=== PATIENT | male | born 1955 | race African-American/Black ===

== ENCOUNTER 2018-11-10 20:09 | Inpatient (IN) | payer MEDICAID ==
--- NOTE | ~2018-11-10 | HEMODYNAMI ---
PATIENT:ALEXANDRE CARRANZA JR MEDICAL RECORD: [id number] : 57 LOCATION:[address] [id number] ADMISSION DATE: 11/11/18 Generatedon:11/14/201810:45 Patient name: ALEXANDRE CARRANZA Patient #: [id number] SSN: : 1955 Date of study: 11/14/2018 Page: Of Hemodynamic Procedure Report Patient Data Patient Demographics Procedure consent was obtained First Name: ALEXANDRE Gender: Male Last Name: TERE Suffix: Patient #: [id number] : 1955 Age: 63 year(s) Accession #: Race: Black [id number] Additional ID: [id number] Contact details [address]: [address] [place] [address] [address] State: [place] City: [facility] Zip code: [address] Past Medical History Allergies: No known allergies Admission Admission Data Admission Date: 11/11/2018 Admission Time: 16:33 Room #: D.2122 Lab Results Lab Result Date: 11/14/2018 Lab Result Time: 0:00 Biochemistry Name Units Result Min Max BUN mg/dl 12 --(-*--)-- 7 18 Creatinine mg/dl 0.9 --(-*--)-- 0.6 1.3 CBC Name Units Result Min Max Hematocrit % 41.2 -*(----)-- 42 54 Hemoglobin g/dl 14.7 --(-*--)-- 13.5 17.5 Procedure Procedure Types Cath Procedure Diagnostic Procedure LHC LHC w/Coronaries Procedure Description Procedure Date Procedure Date: 11/14/2018 Procedure Start Time: 10:35 Procedure End Time: 10:42 Procedure Staff Name Function Saran Bran MD Performing Physician Du Gentile RT Monitor Theresa Merino RT Scrub Gavin Maguire RN Nurse Filemon Lea RN Plywood Matcher Procedure Data Cath Procedure Fluoroscopy Diagnostic fluoroscopy Total fluoroscopy Time: 0.7 time: 0.7 min min Diagnostic fluoroscopy Total fluoroscopy dose: 273 dose: 273 mGy mGy Contrast Material Contrast Material Type Amount (ml) Isovue 300 34 Entry Location Entry Primary Successful Side Size Upsize Upsize Entry Closure Succes sful Closure Location (Fr) 1 (Fr) 2 (Fr) Remarks Device Remarks Femoral Right 5 Fr Exoseal artery Estimated blood loss: 5 ml Diagnostic catheters Device Type Used For End Catheter Placement MULTIPACK Pigtail 5 Fr Procedure catheter MULTIPACK JL 4.0 5Fr Procedure catheter MULTIPACK 3DRC 5Fr Procedure catheter Procedure Complications No complications Procedure Medications Medication Administration Route Dosage Oxygen etCO2 Nasal cannula 2 l/min Lidocaine 2% added to field 20 Heparin Flush Bag added to field 2 bags (1000units/500ml NS) 0.9% NaCl I.V. 50 ml/hr Versed I.V. 1 mg Fentanyl I.V. 50 mcg Versed I.V. 1 mg Fentanyl I.V. 50 mcg Fentanyl I.V. 50 mcg Hemodynamics Rest HGB: 14.7 (g/dl) Heart Rate: 93 (bpm) Pressure Samples Time Site Value (mmHg) Purpose Heart Use Rate(bpm) 10:36 LV 107/12,12 Snapshot 87 10:36 LV 106/12,16 EDP 74 10:37 AO 120/78(91) Pullback 79 10:37 LV 106/12,16 Pullback 79 Gradients Valve Time Site 1 Site 2 Mean SEP/DFP Peak To Heart Use (mmHg) (sec/min) Peak Rate (mmHg) (bpm) Aortic 10:37 LV AO 0 8 0 79 106/12,16 120/78(91) Calculations Valve P-P Mean Valve Index Valve Source Name Gradient Area Flow (cm2) Aortic 0 0 0 0 Snapshots Pre Cath Intra NCS Post Cath Vital Signs Time Heart Resp SPO2 etCO2 NIBP (mmHg) Rhythm Pain Sedation Rate (ipm) (%) (mmHg) Status Level (bpm) 10:22:08 98 12 100 8.9 125/85(102) A-Fib 0 (11) 10(A) , No pain 10:26:14 96 22 94 33.7 108/81(92) A-Fib 0 (11) 10(A) , No pain 10:30:18 86 13 97 35.2 115/85(93) A-Fib 0 (11) 10(A) , No pain 10:34:22 86 14 98 25.4 117/90(100) A-Fib 0 (11) 10(A) , No pain 10:38:36 80 16 99 38.9 116/72(84) A-Fib 0 (11) 9(A) , No pain 10:42:46 87 12 98 40.4 106/76(93) NSR 0 (11) 10(A) , No pain Medications Time Medication Route Dose Verified Delivered Reason Notes Eff ectiveness by by 10:20:07 Oxygen etCO2 2 Saran Debbieie used for Nasal l/min Shant Maguire RN procedure cannula 10:20:18 Lidocaine 2% added 20ml Saran Saran for local to vial Shant Bran MD anesthetic field 10:20:24 Heparin Flush added 2 Saran Saran used for Bag to bags Shant Bran MD procedure (1000units/500ml field NS) 10:20:34 0.9% NaCl I.V. 50 Saran Buffie Per ml/hr Shant Maguire RN physician 10:34:49 Versed I.V. 1 mg Saran Alonso for Shant Maguire RN sedation 10:34:59 Fentanyl I.V. 50 Saran Buffie for oziel Maguire RN sedation 10:38:48 Versed I.V. 1 mg Saran Lewisie for Shant Maguire RN sedation 10:38:51 Fentanyl I.V. 50 Saran Lewisie for mcg Shant Maguire RN sedation 10:40:55 Fentanyl I.V. 50 Saran Buffie for oziel Maguire RN sedation Procedure Log Time Note 9:57:48 Signed procedure consent form obtained from patient. 9:57:49 Diagnostic Cath status Urgent 9:57:51 Filemon Lea RN sent for patient. Start room use. 10:09:14 Patient received from Med II to CCL 1 Alert and oriented. Tansferred to table in Supine position. 10:09:15 Warm blankets applied, and joe hugger turned on for patient comfort. 10:09:15 Correct patient and procedure confirmed by team. 10:09:16 ECG and BP/O2 sat monitors applied to patient. 10:09:34 H&P Date Dictated: 11/11/2018 Within 30 days and on chart.. 10:18:31 Lab Result : BUN 12 mg/dl 10:18:31 Lab Result : Hemoglobin 14.7 g/dl 10:18:31 Lab Result : Creatinine 0.9 mg/dl 10:18:31 Lab Result : Hematocrit 41.2 % 10:18:54 Snore? No 10:18:56 Sleep apnea? No 10:18:59 Deviated septum? No 10:19:01 Opens mouth fully? Yes 10:19:02 Sticks out tongue? Yes 10:19:06 Airway obstruction? No ? 10:19:12 Dentures? No ? 10:19:18 Previous problem with sedation/anesthesia? No ? 10:20:07 Oxygen 2 l/min etCO2 Nasal cannula was administered by Gavin Maguire RN; used for procedure; 10:20:18 Lidocaine 2% 20ml vial added to field was administered by Saran Bran MD; for local anesthetic; 10:20:19 Pre procedure: right dorsailis pedis pulse Doppler 10:20:22 Patient pain scale 0/10 ?. 10:20:24 Heparin Flush Bag (1000units/500ml NS) 2 bags added to field was administered by Saran Bran MD; used for procedure; 10:20:28 IV patent on arrival in right hand with 0.9% NaCl at [facility]. 10:20:30 Lab results completed and on chart. 10:20:32 Right groin area was prepped with chlora-prep and draped in sterile fashion 10:20:33 Alarms reviewed by R. N. 10:20:33 Sharps counted by scrub and verified by R.N. 10:20:34 0.9% NaCl 50 ml/hr I.V. was administered by Gavin Maguire RN; Per physician; 10:20:37 Use device set Femoral Dx 10:20:37 ACIST Syringe (32983) opened to sterile field. 10:20:38 Bag Decanter () opened to sterile field. 10:20:38 Medline Cath Pack ([id number]) opened to sterile field. 10:20:40 ACIST Hand Control (60948) opened to sterile field. 10:20:40 ACIST Manifold (38988) opened to sterile field. 10:20:41 DIAGNOSTIC Multipack 5Fr catheter set ([id number]) opened to sterile field. 10:20:41 Tegaderm 4 x 4 (1626W) opened to sterile field. 10:20:42 SHEATH 5FR [place] (FWP990) opened to sterile field. 10:20:43 DIAGNOSTIC WIRE .035 260cm J wire (206613) opened to sterile field. 10:20:48 Time tracking: Regular hours (M-F 7:00 - 5:00) 10:20:51 Plan of Care:Hemodynamics will remain stable., Cardiac rhythm will remain stable., Comfort level will be maintained., Respiratory function will remain adequate., Patient/ family verbilizes understanding of procedure., Procedure tolerated without complication., Recovers from procedure without complications.. 10:21:10 Vital chart was started 10::11 Baseline sample Acquired. 10::16 Rhythm: atrial fibrillation 10::18 Full Disclosure recording started 10:: Pre-procedure instructions explained to patient. 10:: Pre-op teaching completed and patient verbalized understanding. 10::23 Family in waiting room. 10::25 Patient NPO since Breakfast. 10::33 Patient allergic to No known allergies 10:21:34 Is the patient allergic to Iodine/contrast media? No. 10::35 Is patient on blood thinner?Yes 10:21:37 ACC The patient was administered the following blood thiners within the last 24 hours: ACCPlavix 10:22:14 Patient diabetic? No. 10::43 Physician paged 10:31:15 Zero performed for pressure channel P1 10:33:19 Physician arrived 10:33:19 --------ALL STOP TIME OUT------ 10:33:19 Final Timeout: patient, procedure, and site verified with staff and physician. All members of the team are in agreement. 10:33:21 Right groin site verified by team. 10:33:24 Maximum allowable Isovue 300 dose 300ml. Physician notified. (300ml for normal creatinines. For patients with creatinine of 1.7 or higher multiply weight(kg) x 5 divided by creatinine.) 10:33:27 Fire Safety Assessment: A--An alcohol-based skin anteseptic being used preoperatively., C--Open oxygen or nitrous oxide is being used., D--An ESU, laser, or fiber-optic light is being used. 10:33:30 Physical assessment completed. ASA score P 2 - A patient with mild systemic disease as per Saran Bran MD. 10:33:39 Sedation plan: IV Moderate Sedation Medication:Versed, Fentanyl 10:34:49 Versed 1 mg I.V. was administered by Gavin Maguire RN; for sedation; 10:34:59 Fentanyl 50 mcg I.V. was administered by Gavin Maguire RN; for sedation; 10:35:32 Procedure started. 10:35:41 Local anesthetic to right femoral artery with Lidocaine 2% by Saran Bran MD.INITIAL ACCESS ONLY 10:36:19 A 5 Fr sheath was inserted into the Right Femoral artery 10:36:41 A MULTIPACK Pigtail 5 Fr catheter was advanced over the wire and used for Procedure. 10:37:05 LV gram done using GLEASON 10:37:07 Injector settings: Ml/sec: 10, Volume: 20, 10:37:10 LV hemodynamics recorded. 10:37:14 EF : 10 % 10:37:23 A MULTIPACK JL 4.0 5Fr catheter was advanced over the wire and used for Procedure. 10:37:27 LCA angiography performed. 10:38:31 Catheter exchanged over wire. 10:38:34 A MULTIPACK 3DRC 5Fr catheter was advanced over the wire and used for Procedure. 10:38:48 Versed 1 mg I.V. was administered by Gavin Maguire RN; for sedation; 10:38:51 Fentanyl 50 mcg I.V. was administered by Gavin Maguire RN; for sedation; 10:39:11 RCA angiography performed. 10:39:45 Catheter removed. 10:39:46 EXOSEAL 5Fr (EX500) opened to sterile field. 10:39:55 Sheath removed intact; hemostasis achieved with Exoseal to the Right Femoral artery. 10:39:57 Procedure ended.(Physican Out) 10:40:55 Fentanyl 50 mcg I.V. was administered by Gavin Maguire RN; for sedation; 10::34 Fluoroscopy time 00.70 minutes. 10:41:38 Flurop Dose total: 273 10::38 Fluoroscopy dose: 273 mGy 10:41:41 Contrast amount:Isovue 300 34ml. 10:41:43 Sharps counted by scrub and verified by R.N. 10:41:44 Insertion/operative site no bleeding no hematoma. 10:41:46 Post-op/insertion site Right Femoral artery dressed using a 4 x 4 and Tegaderm. 10:41:49 Post right femoral artery:stable, soft, clean and dry 10:41:50 Post Procedure Pulses reassessed and unchanged 10:41:53 Post-procedure physical assessment completed. ASA score P 2 - A patient with mild systemic disease as per Saran Bran MD. 10:41:57 Post procedure rhythm: unchanged. 10:42:00 Estimated blood loss: 5 ml 10:42:01 Post procedure instruction explained to patient.Patient verbalizes understanding. 10:42:02 Patient needs reinforcement of post procedure teaching. 10:42:18 Procedure and supply charges have been captured, reviewed, submitted and are correct. 10:42:23 Procedure Complication : No complications 10:42:24 Vital chart was stopped 10:42:25 See physician's report for complete and final results. 10:42:26 Report given to PCU. 10:42:28 Patient transfered to PCU with Stretcher. 10:42:30 Procedure ended. 10:42:30 Full Disclosure recording stopped 10:42:33 End room use (Document Last) Device Usage Item Name Manufacture Quantity Catalog Hospital Part Current Minimal L ot# / Number Charge Number Stock Stock Serial# Code ACIST Acist 1 [id number] 529686 437003 550059 20 Syringe Medical (20120) Systems Inc Bag Microtek 1 2001S 947396 22216 199761 5 Decanter Medical Inc. () Medline Medline 1 [id number] 748613 97088 541953 5 Cath Pack ([id number]) ACIST Hand Acist 1 49783 140039 665475 085764 5 Control Medical (79962) Systems Inc ACIST Acist 1 10511 406771 008075 363486 5 Manifold Medical (81150) Systems Inc DIAGNOSTIC Cardinal 1 [id number] 204565 43284 985985 30 Multipack Health 5Fr catheter set (UO1548) Tegaderm 4 3M 1 1626W 552347 729941 985952 5 x 4 (1626W) SHEATH 5FR Terumo 1 QFS773 654476 421592 099340 5 [place] (IOF041) DIAGNOSTIC St Stone 1 604767 355123 449443 395224 30 WIRE .035 260cm J wire (890495) MULTIPACK Cardinal 1 793419 5 Pigtail 5 Health Fr catheter MULTIPACK Cardinal 1 889720 5 JL 4.0 5Fr Health catheter MULTIPACK Cardinal 1 479486 5 3DRC 5Fr Health catheter EXOSEAL 5Fr Cardinal 1 EX500 009496 409235 395539 10 (EX500) Health Signature Audit [place] Stage Time Signature Unsigned Intra-Procedure 11/14/2018 Du Gentile 10:45:22 AM RT(R) Signatures Monitor : Du Gentile RT Signature : Date : Time : [id number] [place] [address]
[~2018-11-10 20:09] MED LIST: BACTRIM DS TABL1 TAB PO; HYDROCHLOROTHIA25 MG PO; HYDROCODONE-APA1 TAB PO; LIPITOR20 MG PO; TRAZODONE HCL50 MG PO
[2018-11-10 20:31] LABS: BASOPHILS 0.4 % (0-2); EOSINOPHILS 0 % (0-7); HEMATOCRIT 41.2 % (42.0-54.0); HEMOGLOBIN 14.7 g/dL (13.5-17.5); IMMATURE GRANULOCYTES 0.2 % (0-5); LYMPHOCYTES 20.9 % (15-50); MCH 28.7 pg (26.0-34.0); MCHC 35.7 g/dL (31.0-37.0); MCV 80.3 fL (80.0-100.0); MEAN PLATELET VOLUME 9.5 fL (7.4-10.4); MONOCYTES 13.9 % (2-11); NEUTROPHILS 64.6 % (40-80); PLATELET COUNT 229 10x3/uL (130-400); RBC 5.13 10x6/uL (4.20-6.10); RDW 16.3 % (11.5-14.5); WBC 5.4 10x3/uL (4.8-10.8)
[2018-11-10 20:43] LABS: ALBUMIN 2.8 g/dL (3.4-5.0); ALKALINE PHOSPHATASE 162 U/L (46-116); ALT (SGPT) 55 U/L (10-68); CALC OSMOLALITY 265 mosm/kg (275-300); CALCIUM 8.8 mg/dL (8.5-10.1); CARBON DIOXIDE 25.2 mmol/L (21.0-32.0); CHLORIDE - SERUM 96 mmol/L (98-107); CREATININE - SERUM 0.9 mg/dL (0.6-1.3); GLUCOSE 91 mg/dL (74-106); POTASSIUM - SERUM 3.3 mmol/L (3.5-5.1); PROTEIN - SERUM 7.9 g/dL (6.4-8.2); SODIUM 133 mmol/L (136-145); UREA NITROGEN 12 mg/dL (7-18); eGFR NON AFRICAN AMERICAN > 90 mL/min (90-120)
[2018-11-10 20:59] LABS: APTT 26.3 SECONDS (22.8-39.4); CKMB 1.5 U/L (0.0-3.6); CREATINE KINASE 329 UL (21-232); INR 1.17 (0.85-1.17); MAGNESIUM - SERUM 1.5 mg/dL (1.8-2.4); PRO BNP 16297 pg/mL (0-125); PROTIME 14.4 SECONDS (11.6-15.0)
[2018-11-10 21:03] LABS: TROPONIN-I 0.133 ng/mL (0.000-0.060)
--- NOTE | 2018-11-10 22:03 | NUR ---
RECIEVED TO ROOM 2121 FROM ER VIA STRETCHER. PT A&O. PT C/O SOB, PLACED ON O2 AT 2 LITERS VIA NC. 02 SATS 96%. IV TO LEFT ARM WITH CARDIZEM INFUSING AT 5 CC/HR, IV SITE CLEAN AND DRY. PLACED ON TELEMETRY, 106 UNCONTROLLED AFIB. MED REC AND HISTORY OBTAINED. PT CURRENTLY DENIES PAIN OR NEEDS, BED LOW, CL IN REACH.
[2018-11-10] MEDS ORDERED: LIPITOR80 MG PO (22:48)
[2018-11-10] MEDS ORDERED: LISINOPRIL5 MG PO (22:48)
[2018-11-10] MEDS ORDERED: TRAZODONE HCL150 MG PO (22:48)
[2018-11-10] MEDS ORDERED: TOPROL XL50 MG PO (22:49)
--- NOTE | 2018-11-10 23:31 | NUR ---
NOTIFED BY MT THAT PT HAS JUST HAD A RUN OF V TACH, PT IN BED RESTING, ASYMPTOMATIC, NO S/S DISTRESS NOTED.
[2018-11-11 02:38] LABS: BASOPHILS 0.6 % (0-2); EOSINOPHILS 0.2 % (0-7); HEMATOCRIT 41.4 % (42.0-54.0); HEMOGLOBIN 14.6 g/dL (13.5-17.5); LYMPHOCYTES 23.1 % (15-50); MCH 28.7 pg (26.0-34.0); MCHC 35.3 g/dL (31.0-37.0); MCV 81.5 fL (80.0-100.0); MEAN PLATELET VOLUME 9.3 fL (7.4-10.4); MONOCYTES 13.9 % (2-11); NEUTROPHILS 62.2 % (40-80); PLATELET COUNT 213 10x3/uL (130-400); RBC 5.08 10x6/uL (4.20-6.10); RDW 16.6 % (11.5-14.5); WBC 5.1 10x3/uL (4.8-10.8)
[2018-11-11 03:08] LABS: CALC OSMOLALITY 269 mosm/kg (275-300); CALCIUM 8.5 mg/dL (8.5-10.1); CARBON DIOXIDE 27.1 mmol/L (21.0-32.0); CHLORIDE - SERUM 97 mmol/L (98-107); CREATININE - SERUM 0.9 mg/dL (0.6-1.3); GLUCOSE 101 mg/dL (74-106); POTASSIUM - SERUM 3.5 mmol/L (3.5-5.1); SODIUM 135 mmol/L (136-145); TROPONIN-I 0.144 ng/mL (0.000-0.060); UREA NITROGEN 12 mg/dL (7-18); eGFR NON AFRICAN AMERICAN > 90 mL/min (90-120)
--- NOTE | 2018-11-11 03:19 | NUR ---
RESTING WITH EYES CLOSED, RESPERATIONS EVEN, NO S/S DISTRESS NOTED.
--- NOTE | 2018-11-11 03:58 | NUR ---
UPON PT GETTING UP TO THE BR, IV TO LEFT ARM PULLED OUT. RESITED IV TO RIGHT HAND, CARDIZEM DRIP RESUMED.
[2018-11-11 04:00] VITALS: BP 137/91
[2018-11-11 04:06] VITALS: BP 155/106; BMI 28.7
[2018-11-11 09:30] VITALS: BP 134/49
[2018-11-11 11:00] VITALS: BP 118/86
[2018-11-11 12:34] VITALS: BMI 28.6
--- NOTE | 2018-11-11 14:53 | NUR ---
UP IN CHAIR. REFUSED SCDS AT THIS TIME.
[2018-11-11 16:00] VITALS: BP 119/87
--- NOTE | 2018-11-11 20:00 | NUR ---
INITIAL ROUNDS AND ASSESSMENT COMPLETED. PT ALERT/ORIENTED, RESTING BUT ROUSES UP TO NAME. 85/CAF PER TELEMETRY. SALINE LOCK TO RIGHT HAND. O2 @ 2L/NC WITH NONLABORED RESPIRATIONS. MONITOR AND CPOC.
--- NOTE | 2018-11-11 21:16 | NUR ---
BEDTIME MEDS GIVEN. CAF PER TELEMETRY.
--- NOTE | 2018-11-12 01:43 | NUR ---
RESTING IN BED WITH NO DISTRESS. CALL LIGHT IN REACH. MONITOR AND CPOC.
--- NOTE | 2018-11-12 03:24 | NUR ---
PT AWAKE WITH C/O SEVERE/CRAMPING ABDOMINAL PAIN. STATES THIS IS THE SAME PAIN HE HAD THAT BROUGHT HIM TO ER. HYPO BS X 4, STATES SMALL BM YESTERDAY AFTER BEING GIVEN SOMETHING "SUGARY AND VERY SWEET" TO TAKE. MEDICATED WITH ZOFRAN 4MG SIVP AND MORPHINE 4MG SIVP AT THIS TIME. MONITOR AND CPOC.
[2018-11-12 04:21] VITALS: BP 128/94
--- NOTE | 2018-11-12 07:30 | NUR ---
RECEIVED PT IN BED AAOX4 RESP UNLABORED DENIES ANY NEEDS OR DISCOMFORT AT THIS TIME
[2018-11-12 08:44] VITALS: BP 118/85
[2018-11-12 12:08] VITALS: BP 121/81
[2018-11-12 13:31] VITALS: BP 116/86
[2018-11-12 17:28] VITALS: BP 137/92
[2018-11-12 19:35] VITALS: BP 124/80
--- NOTE | 2018-11-12 20:00 | NUR ---
INITIAL ROUNDS AND ASSESSMENT COMPLETED. IV DOBUTAMINE INFUSING AT 15ML/HR TO RIGHT HAND. NONLABORED RESPIRATIONS ON ROOM AIR. ALERT/ORIENTED. VOICING NO NEEDS OR C/O PAIN. PT TEACHING ON THE IMPORTANCE OF MEASURING ALL OUTPUT TO BE ABLE TO DETERMINE THE EFFECTIVENESS OF HIS LASIX AND DOBUTAMINE. PT VOICED UNDERSTANDING.
[2018-11-13] VITALS (8 sets, daily range): BP systolic 117–135; BP diastolic 76–95
--- NOTE | 2018-11-13 02:10 | NUR ---
IV LASIX HAS BEEN ADMINISTERED.NEW BAG OF DOBUTAMINE UP AND INFUSING. PT ROUSES UP BRIEFLY, THEN BACK TO RESTING WITH EYES CLOSED. PT TEACHING HAS BEEN DONE ON IMPORTANCE OF STRICT OUTPUT MEASUREMENTS. SO FAR ONLY 100ML OF URINE HAS BEEN IN HIS URINAL. POSSIBLY PT IS GETTING UP TO USE THE BATHROOM. WILL REINFORCE NEED FOR URINE MEASUREMENT.
--- NOTE | 2018-11-13 03:12 | NUR ---
RESTING IN BED WITH EYES CLOSED. NO DISTRESS. NONLABORED RESPIRATIONS. MONITOR AND CPOC.
--- NOTE | 2018-11-13 04:18 | NUR ---
PT AWAKENED WITH C/O ABDOMINAL PAIN/CRAMPING. MEDICATED WITH MORPHINE 4MG SIVP AND ZOFRAN 4MG SIVP. MONITOR AND CPOC.
--- NOTE | 2018-11-13 07:30 | NUR ---
PT AAOX4 RESP UNLABORED DENIES ANY NEEDS OR DISCOMFORT AT THIS TIME
--- NOTE | 2018-11-13 21:02 | NUR ---
RECIEVED LAYING IN BED WITH EYES OPEN AND TV ON. ALERT AND ORIENTED X4. UP AD CHRISTINA TO B/R. IV TO RIGHT HAND WITH DOBUTAMINE @ 15ML/HR. DSG TO SITE CLEAN DRY AND INTACT. TELEMETRY IN PLACE. +3 PITTING EDEMA TO LINN. LOWER EXTREMITIES. EDUCATED ON NPO STATUS AFTER MN. VOICED UNDERSTANDING.
[2018-11-14 04:57] VITALS: BP 135/83
--- NOTE | 2018-11-14 07:29 | NUR ---
ROUNDING DONE WITH PATIENT SITTING IN CHAIR, NPO STATUS FOR HEART CATH TODAY. SUPPLIES GIVEN FOR SHOWER. ON HEART MONITOR SHOWING CAF. RIGHT HAND SALINE LOCK PIV AT THIS TIME.
--- NOTE | 2018-11-14 07:56 | NUR ---
SHOWER AND COMPLETE BED LINEN CHANGE DONE.
[2018-11-14 08:23] VITALS: BP 123/94
--- NOTE | 2018-11-14 10:05 | NUR ---
TO SENIOR DATA WAREHOUSE ARCHITECT VIA BED.
--- NOTE | 2018-11-14 11:00 | NUR ---
RETURNS FROM SKIRT CLIPPER RECOVERY. TO LAY FLAT X 2 HOURS. RIGHT GROIN DRESSING IS C/D/I.
[2018-11-14 11:57] VITALS: BP 117/76
--- NOTE | 2018-11-14 12:15 | NUR ---
FOUND PATIENT STANDING AT SIDE OF BED NEEDING TO "PEE". GOT HIM TO LAY BACK DOWN AND ASSISTED HIM WITH THE URINAL. RIGHT GROIN IS SOFT, NO HEMATOMA FELT. DRESSING IS C/D/I. I INFORMED HIM THAT HE NEEDS TO STAY FLAT ANOTHER 45 MIN AND I WOULD ASSIST HIM IN SITTING UP TO EAT. STATES TO UNDERSTANDING. CALL LIGHT IS ON CHEST.
--- NOTE | 2018-11-14 12:57 | NUR ---
SAT AT 30 DEGREES IN BED. PATIENT IS STILL SLEEPY, STATES THAT HE DOES NOT WANT TO EAT. LEFT TRAY IN ROOM. WILL MONITOR.
--- NOTE | 2018-11-14 14:35 | NUR ---
PATIENT TO WAKE UP AND EAT PART OF HIS SANDWICH AND ALL HIS CHIPS, DRANK HIS TEA. BACK TO SLEEP, RESP ARE EVEN. RIGHT GROIN DRESSING IS C/D/I
--- NOTE | 2018-11-14 14:46 | NUR ---
ASSSITED PATIENT TO RESTROOM TO VOID. PATIENT STRAINING. I ASKED THAT HE NOT DO THAT, REPLIES " I HAVE HAD TO STRAIN ALL MY LIFE TO PEE". I ASKED IF HE EVER HAD THIS CHECKED OUT AND HE SAID NO.
[2018-11-14 15:40] VITALS: BP 127/79
--- NOTE | 2018-11-14 17:35 | NUR ---
DENIES NEEDS AT THIS TIME. RIGHT GROIN DRESSING IS C/D/I.
--- NOTE | 2018-11-14 19:27 | NUR ---
RESUMING PATIENT CARE. PATIENT RESTING COMFORTABLY IN BED. RESPIRATIONS ARE EVEN AND UNLABORED. NO S/S OF DISTRESS. NO C/O PAIN. DENIES NEEDS. CALL LIGHT WITHIN REACH. WILL CPOC.
[2018-11-14 20:18] VITALS: BP 127/94
--- NOTE | 2018-11-14 23:19 | NUR ---
WAS TOLD BY SEWER PIPE LAYER HELPER THAT THE PATIENT HAD AN 8 BEAT RUN OF VTACH. WENT TO ASSESS PATIENT, PATIENT WAS UP USING THE RESTROOM. NO S/S OF DISTRESS. NO C/O CHEST PAIN.
[2018-11-15 00:32] VITALS: BP 124/92
[2018-11-15 04:09] VITALS: BP 97/64
--- NOTE | 2018-11-15 07:16 | NUR ---
ROUNDING DONE WITH NO COMPLAINTS AT PRESENT TIME. RIGHT GROIN DRESSING FROM [facility], C/D/I. ON HEART MONITOR SHOWING CAF, HR 88. RIGHT HAND PIV SEEN WITH DOBUTAMINE INFUSING AT 15 CC/HR. ON 2L PER NC. 3+ EDEMA SEEN TO BILATERAL FEET.
[2018-11-15 08:00] VITALS: BP 115/72
--- NOTE | 2018-11-15 09:00 | NUR ---
T 102. TYLENOL GIVEN ORDERED.
--- NOTE | 2018-11-15 09:39 | NUR ---
PATIENT IS HAVING DRY HEAVES, ZOFRAN GIVEN FOR COMFORT.
--- NOTE | 2018-11-15 11:46 | NUR ---
DR MIR IN TO SEE PATIENT.
[2018-11-15 12:00] VITALS: BP 129/79
--- NOTE | 2018-11-15 13:12 | NUR ---
Nutrition Follow up Pt is on a Cardiac diet with 72% average po intake past 3 days. Pt is not able to eat much today due to nausea Poncho ordered Pt reports he is able to tolerate soda pop Will continue to monitor Customized dinner tonight to improve toleration RD following
--- NOTE | 2018-11-15 14:57 | NUR ---
RESTING WITH EYES CLOSED, RESP EVEN.
[2018-11-15 16:30] VITALS: BP 128/94
--- NOTE | 2018-11-15 17:53 | NUR ---
PAGE INTO DR MIR PATIENT NOW HAS CRACKLES BILATERAL HEARD THROUGHOUT LUNG MARSHALL. NEW ORDERS RECEIVED.
--- NOTE | 2018-11-15 18:09 | NUR ---
22 G TO RIGHT FA NEAR AC X 1 STICK PER THIS NURSE. 16 FR CARLSON CATH PLACED WITH RETURN OF 1100 CC CONCENTRATED URINE.
--- NOTE | 2018-11-15 19:05 | NUR ---
BEDSIDE REPORT RECEIVED. PT LAYING IN BED WITH EYES CLOSE. PT OPENS EYES WHEN NURSES WALK INTO ROOM. PT DENIES ANY NEEDS. NO S/S OF DISTRESS. PT BEDLOW AND CALL LIGHT IN REACH. NAME AND DATE PLACED ON BOARD. DOBUTAMINE AND BUMEX INFUSING ORDERED. PT WILL CALL FOR ASSIST WHEN NEEDED. WILL CPOC
[2018-11-15 21:16] VITALS: BP 132/83
--- NOTE | 2018-11-15 21:34 | NUR ---
NIGHT MEDICATIONS GIVEN. PT VERBALIZED UNDERSTANDING OF MEDICATIONS. PT BUMEX AND DOBUTAMINE INFUSING ORDERED. PT BEDLOW AND CALL LIGHT IN REACH. 850 ML OF YELLOW URINE EMPTIED FROM URINAL. PT WILL CALL FOR ASSIST WHEN NEEDED. WILL CPOC
--- NOTE | 2018-11-15 23:39 | NUR ---
PT CALLED TO ATTEMPT TO USE RESTROOM. BM UNSUCCESSFUL. PT BACK INTO BED. WILL CALL FOR ASSIST WHEN NEEDED. WILL CPOC
[2018-11-16] VITALS (7 sets, daily range): BP systolic 101–142; BP diastolic 67–84
[2018-11-16 05:20] LABS: ANION GAP 8.1 mmol/L (8-16); CALCIUM 7.9 mg/dL (8.5-10.1); CARBON DIOXIDE 36.6 mmol/L (21.0-32.0); CREATININE - SERUM 1.2 mg/dL (0.6-1.3)
[2018-11-16 05:38] LABS: POTASSIUM - SERUM 2.7 mmol/L (3.5-5.1)
--- NOTE | 2018-11-16 06:13 | NUR ---
40 MEQ OF KDUR GIVEN CRUSHED IN PUDDING,. PT SITTING UP HOB ABOVE 30, NOURISHMENT PROVIDED. PT WILL CALL FOR ASSIST WHEN NEEDED. WILL DO A REDRAW IN 4 HOURS
--- NOTE | 2018-11-16 08:07 | NUR ---
ROUNDING DONE WITH PATIENT HAVING TO HAVE HIS CARLSON CATH EMTIED AGAIN. 1000 CC CLEAR YELLOW URINE. ON HEART MONITOR SHOWING UCAF, HR 107. ON ROOM AIR AT THIS TIME. RIGHT WRIST/HAND SEEN WITH PIV OF DOBUTAMINE INFUSING AT 15 CC/HR AND BUMEX INFUSING AT 10 CC/HR. SALINE LOCK PIV SEEN TO RIGHT AC. ORANGE SWAB CAPS ARE IN USE. RIGHT GROIN DRESSING SEEN WITH DRESSING C/D/I, THIS WILL BE REMOVED TODAY.
--- NOTE | 2018-11-16 11:22 | NUR ---
TEMP 100.1, TYLENOL GIVEN ORDERED. RE-DRAW OF POTASSIUM IS STILL 2.7. PAGE INTO DR MIR FOR FURTHER ORDERS. AWAITING CALL BACK.
--- NOTE | 2018-11-16 11:25 | NUR ---
NEW ORDERS FROM DR MIR.
--- NOTE | 2018-11-16 13:03 | NUR ---
PATIENT IS RESTING WITH EYES CLOSED. RESP ARE EVEN. APPEARS TO BE PAIN FREE AT THIS TIME. AROUSES EASILY WHEN I WALK TO BED.
--- NOTE | 2018-11-16 14:09 | NUR ---
WHEN ASKED ABOUT WASHING UP, PATIENT REFUSES TO TAKE A BATH OR LINEN CHANGE AT THIS TIME. PATIENT STATES THAT HE WANTS TO WAIT "UNTIL THE MORNING".
--- NOTE | 2018-11-16 16:48 | MORECARE ---
CASE MANAGEMENT DISCHARGE SUMMARY PATIENT: ALEXANDRE CARRANZA JR UNIT: [id number] ADM DATE: 11/11/18 AGE: 63 : 57 SEX: M ROOM/BED: D.2122 AUTHOR: ALBA ABDUL PHYSICIAN: REFERRING PHYSICIAN: PRIYA MIR MD DATE OF SERVICE: 11/16/18 Discharge Plan Patient Name: ALEXANDRE [facility]ARRANZA [facility] [facility] 1955 Planned Disposition: Home Anticipated Discharge Date: Discharge Date: Expected LOS: Initial Reviewer: [email or web address] Initial Review Date: 11/16/2018 Generated: 11/16/18 5:47 pm DCPIA - Discharge Planning Initial Assessment Updated by [email or web address]: Wes Kunz on 11/16/18 4:46 pm * Is the patient Alert and Oriented? Yes * How many steps to enter\exit or inside your home? * PCP DR. HAMMOND, [facility] * Pharmacy [facility]. * Preadmission Environment Home with Family * ADLs Partial Dependent * Partial ADLs (Assistance needed) Medication Management * Equipment None * Other Equipment NO MEDICAL EQUIPMENT PROVIDER PREFERENCE * List name and contact numbers for known caregivers / representatives who currently or will assist patient after discharge: CLAUDIO TO, GIRLFRIEND, * Verbal permission to speak to the caregivers and representatives has been obtained from the patient. Yes * Community resources currently utilized None * Please name any agencies selected above. NONE * Additional services required to return to the preadmission environment? No * Can the patient safely return to the preadmission environment? Yes * Has this patient been hospitalized within the prior 30 days at any hospital? No Patient Name: ALEXANDRE CARRANZA Page [id number] at 1648 All edits/amendments must be made on the electronic document DICTATION DATE: 11/16/181646 GUSSET FOLDER: KATE 11/16/181646 RPT#: [id number] DC DATE: STATUS: ADM IN [facility] [address] [place] [address] END OF REPORT
--- NOTE | 2018-11-16 16:58 | MORECARE ---
CASE MANAGEMENT DISCHARGE SUMMARY PATIENT: ALEXANDRE CARRANZA JR UNIT: [id number] ADM DATE: 11/11/18 AGE: 63 : 57 SEX: M ROOM/BED: D.2122 AUTHOR: CHANTELL,DOC PHYSICIAN: REFERRING PHYSICIAN: PRIYA MIR MD DATE OF SERVICE: 11/16/18 Discharge Plan Patient Name: ALEXANDRE CARRANZA [facility] [facility] 1955 Planned Disposition: Home Anticipated Discharge Date: Discharge Date: Expected LOS: Initial Reviewer: [email or web address] Initial Review Date: 11/16/2018 Generated: 11/16/18 5:58 pm Comments DCP- Discharge Planning Updated by [id number]: Wes Kunz on 11/16/18 3:[address] Patient Name: ALEXANDRE CARRANZA Admission Status: ER Accout number: [id number] Admission Date: 11-11-2018 : 1955 Admission Diagnosis:CHEST PAIN, UNSPECIFIED Attending: CARLA MIR Current LOS: 5 Anticipated DC Date: Planned Disposition: Home Primary Insurance: MEDICAID [place] Discharge Planning Comments: CM MET WITH PT IN ROOM TO DISCUSS DISCHARGE PLANNING AND NEEDS. PT REPORTS LIVING AT HOME INDEPENDENTLY WITH HIS GIRLFRIEND. PT REPORTS THAT HE CANNOT READ THAT GOOD SO HIS GIRLFRIEND ASSISTS WITH MEDICATION MANAGEMENT. PT HAS NO MEDICAL EQUIPMENT AND NO OUTSIDE SERVICES ASSISTING IN THE HOME. CM DISCUSSED AVAILABILITY OF HOME HEALTH, REHAB SERVICES AND MEDICAL EQUIPMENT. PT DENIES DISCHARGE NEEDS, REPORTS HE PLANS TO RIDE THE BUS HOME. PT DOES USE MEDICAID TRANSPORTATION AND WOULD LIKE CM TO ARRANGE IT IF POSSIBLE FOR DISCHARGE HOME. CM TO ASSIST WITH CALLING MEDICAID TRANSPORTATION SERVICES FOR PT'S DISCHARGE HOME. PT DENIES FURTHER NEEDS. CM TO FOLLOW AND ASSIST IF NEEDED. Dry End Operator: Wes Kunz DCPIA - Discharge Planning Initial Assessment Updated by [email or web address]: Wes Kunz on 11/16/18 4:46 pm * Is the patient Alert and Oriented? Yes * How many steps to enter\exit or inside your home? * PCP DR. HAMMOND, [facility] * Pharmacy [facility]. * Preadmission Environment Home with Family * ADLs Partial Dependent * Partial ADLs (Assistance needed) Medication Management * Equipment None * Other Equipment NO MEDICAL EQUIPMENT PROVIDER PREFERENCE * List name and contact numbers for known caregivers / representatives who currently or will assist patient after discharge: CLAUDIO TO, GIRLFRIEND, * Verbal permission to speak to the caregivers and representatives has been obtained from the patient. Yes * Community resources currently utilized None * Please name any agencies selected above. NONE * Additional services required to return to the preadmission environment? No * Can the patient safely return to the preadmission environment? Yes * Has this patient been hospitalized within the prior 30 days at any hospital? No Last DP export: 11/16/18 3:48 pm Patient Name: ALEXANDRE CARRANZA Page [id number] at 1658 All edits/amendments must be made on the electronic document DICTATION DATE: 11/16/181656 STEEL ERECTOR: KATE 11/16/181656 RPT#: [id number] DC DATE: STATUS: ADM IN [facility] [address] [place] [address] END OF REPORT
--- NOTE | 2018-11-16 17:31 | NUR ---
PATIENT DOES NOT WANT TO EAT SUPPER AT THIS TIME.
--- NOTE | 2018-11-16 19:15 | NUR ---
BEDSIDE REPORT RECEIVED. NAME AND DATE PLACED ON BOARD. PT IS AAO. HAS DOBUTAMINE AND BUMEX INFUSING ORDERED. ROBYN NOTED. PT HAS NOURISHMENT AT BEDSIDE. DENIES ANY NEEDS AT THIS TIME. NO S/S OF DISTRESS. PT BEDLOW AND CALL LIGHT IN REACH. NAME AND DATE PLACED ON BOARD. WILL CPOC
--- NOTE | 2018-11-16 21:28 | NUR ---
CHANGED TUBING ON DOBUTAMINE, NEW BAG AND TUBING INFUSING ORDERED TO RIGHT HAND. PT NIGHT MEDS GIVEN. PT VERBALIZED UNDERSTANDING OF MEDICATIONS. PT BEDLOW AND CALL LIGHT IN REACH. PT WILL CALL FOR ASSIST WHEN NEEDED.WILL CPOC
--- NOTE | 2018-11-17 01:26 | NUR ---
PT GIVEN A POTASSIUM RIDER FOR 2.8 POTASSIUM.
--- NOTE | 2018-11-17 02:22 | NUR ---
2ND RIDER INFUSING, EMPTIED 1634 FROM [facility]. PT DENIES ANY OTHER NEEDS. WILL CPOC
--- NOTE | 2018-11-17 04:16 | NUR ---
4TH RIDER STARTED INFUSING.
[2018-11-17 05:32] VITALS: BP 115/71
[2018-11-17 05:35] LABS: BASOPHILS 0.2 % (0-2); EOSINOPHILS 0.2 % (0-7); HEMATOCRIT 41.3 % (42.0-54.0); HEMOGLOBIN 14.4 g/dL (13.5-17.5); IMMATURE GRANULOCYTES 0.2 % (0-5); LYMPHOCYTES 14.3 % (15-50); MCH 28.2 pg (26.0-34.0); MCHC 34.9 g/dL (31.0-37.0); MCV 80.8 fL (80.0-100.0); MEAN PLATELET VOLUME 9.9 fL (7.4-10.4); MONOCYTES 14.7 % (2-11); NEUTROPHILS 70.4 % (40-80); RBC 5.11 10x6/uL (4.20-6.10); RDW 16.1 % (11.5-14.5); WBC 10.2 10x3/uL (4.8-10.8)
[2018-11-17 05:40] LABS: PLATELET COUNT 260 10x3/uL (130-400)
[2018-11-17 06:10] LABS: ANION GAP 7.1 mmol/L (8-16); CALCIUM 7.8 mg/dL (8.5-10.1); CARBON DIOXIDE 39.3 mmol/L (21.0-32.0); CREATININE - SERUM 1.2 mg/dL (0.6-1.3); MAGNESIUM - SERUM 1.1 mg/dL (1.8-2.4)
[2018-11-17 06:11] LABS: POTASSIUM - SERUM 3.4 mmol/L (3.5-5.1)
--- NOTE | 2018-11-17 07:30 | NUR ---
ASSESSMENT DONE. ALERT AND ORIENTED. TELEMERTY SHOWS CAF 84. RIGHT AC SL. RIGHT FA WITH BUMEX AT 10 AND DOBUTAMINE AT 15. CARLSON CATH PATENT TO GRAVITY BAG. UP AB CHRISTINA. WILL MONITOR
[2018-11-17 09:31] VITALS: BP 103/73
[2018-11-17] MEDS ORDERED: BETAPACE 120 M120 MG PO (10:05)
[2018-11-17] MEDS ORDERED: BUMEX2 MG PO (10:07)
[2018-11-17] MEDS ORDERED: K-TAB10 MEQ PO (10:08)
[2018-11-17] MEDS ORDERED: ELIQUIS5 MG PO (10:09)
--- NOTE | 2018-11-17 11:12 | NUR ---
PT DISCHARGED. IVS DCD. INSTRUCTIONS GIVEN TO PT. TO PRIVATE CAR PER WHEELCHAIR
--- NOTE | 2018-11-17 11:44 | NUR ---
I have reviewed this patient and I concur with the Shift Assessment completed by the Licensed Practical Nurse today this shift.
--- NOTE | 2018-11-17 12:00 | NUR ---
RIDE HERE. DISCHARGE INSTRUCTIONS GIVEN. BOTH PT AND FAMILY UNDERSTAND. TO CAR VIA WC.
--- NOTE | 2018-11-17 15:57 | MORECARE ---
CASE MANAGEMENT DISCHARGE SUMMARY PATIENT: ALEXANDRE CARRANZA JR UNIT: [id number] ADM DATE: 11/11/18 AGE: 63 : 57 SEX: M ROOM/BED: D.2122 AUTHOR: CHANTELL,DOC PHYSICIAN: REFERRING PHYSICIAN: PRIYA MIR MD DATE OF SERVICE: 11/17/18 Discharge Plan Patient Name: ALEXANDRE CARRANZA Facility: [facility]:[place] : 1955 Planned Disposition: Home Anticipated Discharge Date: 11/17/18 Discharge Date: 11/17/2018 Expected LOS: 6 Initial Reviewer: [email or web address] Initial Review Date: 11/16/2018 Generated: 11/17/18 4:56 pm Comments DCP- Discharge Planning Updated by [email or web address]: Wes Kunz on 11/16/18 3:[address] Patient Name: ALEXANDRE CARRANZA Admission Status: ER Accout number: [id number] Admission Date: 11-11-2018 : 1955 Admission Diagnosis:CHEST PAIN, UNSPECIFIED Attending: CARLA MIR Current LOS: 5 Anticipated DC Date: Planned Disposition: Home Primary Insurance: MEDICAID [place] Discharge Planning Comments: CM MET WITH PT IN ROOM TO DISCUSS DISCHARGE PLANNING AND NEEDS. PT REPORTS LIVING AT HOME INDEPENDENTLY WITH HIS GIRLFRIEND. PT REPORTS THAT HE CANNOT READ THAT GOOD SO HIS GIRLFRIEND ASSISTS WITH MEDICATION MANAGEMENT. PT HAS NO MEDICAL EQUIPMENT AND NO OUTSIDE SERVICES ASSISTING IN THE HOME. CM DISCUSSED AVAILABILITY OF HOME HEALTH, REHAB SERVICES AND MEDICAL EQUIPMENT. PT DENIES DISCHARGE NEEDS, REPORTS HE PLANS TO RIDE THE BUS HOME. PT DOES USE MEDICAID TRANSPORTATION AND WOULD LIKE CM TO ARRANGE IT IF POSSIBLE FOR DISCHARGE HOME. CM TO ASSIST WITH CALLING MEDICAID TRANSPORTATION SERVICES FOR PT'S DISCHARGE HOME. PT DENIES FURTHER NEEDS. CM TO FOLLOW AND ASSIST IF NEEDED. Scale Agent: Wes Kunz DCPIA - Discharge Planning Initial Assessment Updated by [id number]: Wes Kunz on 11/16/18 4:46 pm * Is the patient Alert and Oriented? Yes * How many steps to enter\exit or inside your home? * PCP DR. HAMMOND, [facility] * Pharmacy [facility] AT [facility]. * Preadmission Environment Home with Family * ADLs Partial Dependent * Partial ADLs (Assistance needed) Medication Management * Equipment None * Other Equipment NO MEDICAL EQUIPMENT PROVIDER PREFERENCE * List name and contact numbers for known caregivers / representatives who currently or will assist patient after discharge: CLAUDIO TO, GIRLFRIEND, * Verbal permission to speak to the caregivers and representatives has been obtained from the patient. Yes * Community resources currently utilized None * Please name any agencies selected above. NONE * Additional services required to return to the preadmission environment? No * Can the patient safely return to the preadmission environment? Yes * Has this patient been hospitalized within the prior 30 days at any hospital? No Last DP export: 11/16/18 3:58 pm Patient Name: ALEXANDRE CARRANZA Page [id number] at 1557 All edits/amendments must be made on the electronic document DICTATION DATE: 11/17/186 NEUROCRITICAL CARE PHYSICIAN: KATE 11/17/18 1556 RPT#: [id number] DC DATE:11/17/18 STATUS: DIS IN [facility] [address] [place] [address] END OF REPORT
--- NOTE | 2018-11-18 16:41 | EC ---
PATIENT:ALEXANDRE CARRANZA JR DATE OF SERVICE: 11/10/18 SEX: M MEDICAL RECORD: [id number] DATE OF : [birth year] LOCATION:D.M2 D.212 AGE OF PATIENT: 63 ADMISSION DATE: 11/11/18 REFERRING PHYSICIAN: INTERPRETING PHYSICIAN: PRIYA BRAN MD ECHOCARDIOGRAM REPORT ECHO CHARGES 4 ECHO COMPLETE Date: 11/11/18 CLINICAL DIAGNOSIS: AFIB/CHF HX OF HTN ECHOCARDIOGRAPHIC MEASUREMENTS (adult normal given) AC root (d.<3.7cm) 3.6 cm LV Septum d (<1.2 cm> 1.3 cm Valve Excursion 1.9 cm LV Septum (systole) 1.5 cm Left Atria (s.<4.0cm> 5.0 cm LVPW d(<1.2cm) 1.4 cm RV (d.<2.3cm) 6.0 cm LVPW (sytole) 1.6 cm LV diastole(<5.6CM) 6.1 cm MV E-F(>70mm/sec) cm LV systole 5.6 cm LVOT Diameter 2.1 cm MV exc.(>10mm) 1.7 cm Est.ejection fraction (50-75%) % DOPPLER: LVIT cm/sec A 24.0 cm/sec E 125 cm/sec LA cm/sec RVSP 39 mmHg LVOT 74 cm/sec AOP1/2T m/s Asc. Ao 121 cm/sec RVOT 58 cm/sec RA cm/sec PA 76 cm/sec AV Gradient Peak 5.82 mmHg AV Mean 3.31 mmHg AV Area 2.4 cm MV Gradient Peak 7.26 mmHg MV Mean 2.16 mmHg MV Area cm COMMENTS: Hydrogen Power Plant Manager: Cheri CADE Ground Crew Chief: 1 Dr. Bran TAPE# PACS Pericardial Effusion Y DATE OF SERVICE: 11/11/2018 ECHOCARDIOGRAM DATE OF SERVICE: 11/11/2018 FINDINGS: 1. Left ventricular chamber size is dilated. Left ventricular systolic function is markedly reduced, overall ejection fraction of 20%. 2. Left atrium, right atrium, and right ventricular chamber sizes are dilated. ECHOCARDIOGRAM REPORT [id number] ALEXANDRE CARRANZA JR Left atrium measures 5.0 cm. This gives 4-chamber dilatation. 3. Valvular structures have normal structure and motion. 4. Doppler interrogation reveals mild aortic insufficiency, mild mitral regurgitation, moderate tricuspid regurgitation, no other valvular insufficiency or stenosis. Pulmonary systolic pressure is estimated at 39 mmHg. 5. No evidence of pericardial effusion or left ventricular thrombus. TRANSINT:[id number] Voice Confirmation ID: [id number] DOCUMENT ID: [id number] PRIYA BRAN MD at 1641 CC: [id number] DICTATION DATE: 11/11/18 1238 PHARMACOVIGILANCE SAFETY EXPERT: 11/11/18 1324 DIS IN 11/17/18 [place] [id number] [place] [id number]
--- NOTE | 2018-11-18 16:41 | OP ---
PATIENT NAME: ALEXANDRE CARRANZA JR MEDICAL RECORD: [id number] :[birth year] LOCATION:D.M2 D.2122 ADMISSION DATE:11/11/18 SURGEON: PRIYA MIR MD DATE OF OPERATION: 11/14/2018 PROCEDURES: 1. Left heart catheterization. 2. Selective coronary angiography. 3. Left ventriculogram. INDICATIONS: Cardiomyopathy and congestive heart failure. PROCEDURE IN DETAIL: After informed consent was obtained with detailed description of risks and benefits as well as alternative therapies, the patient elected to proceed with angiogram and heart catheterization. The right femoral area was prepped and draped in normal sterile fashion. The right femoral artery was cannulated via modified Seldinger technique with placement of 5-Emirati sheath. All catheters were exchanged through this sheath. FINDINGS: Left ventriculogram performed in standard 30-degree GLEASON view reveals global hypokinesis throughout all segments. Overall ejection fraction is 10% to 15%. SELECTIVE CORONARY ANGIOGRAPHY: Left main, left anterior descending, left circumflex, and right coronary artery are all smooth-walled vessels with no angiographic evidence of coronary artery disease. OVERALL IMPRESSION: 1. No evidence of coronary artery disease. 2. Normal left heart pressures. 3. Nonischemic cardiomyopathy. Ejection fraction 10% to 15%. Center medical management on treatment of the cardiomyopathy. TRANSINT:[id number] Voice Confirmation ID: [id number] DOCUMENT ID: [id number] PRIYA MIR MD at 1641 CC: [id number] DICTATION DATE: 11/14/18 1045 SUPERINTENDENT HOUSE: 11/14/18 1320 DIS IN 11/17/18 [facility] [address] [place] [id number]
--- NOTE | 2018-11-18 16:41 | HP ---
PATIENT: ALEXANDRE CARRANZA JR MEDICAL RECORD: [id number] ACCOUNT: [id number] LOCATION:[address] : [birth year] ADMISSION DATE: 11/11/18 PCP: FRANNIE HAMMOND MD HISTORY AND PHYSICAL EXAMINATION DIAGNOSES: 1. Atrial fibrillation with rapid ventricular response. 2. Nonsustained ventricular tachycardia. 3. Non-Q-wave myocardial infarction. 4. Coronary artery disease. 5. Hypertension. 6. Constipation. 7. Hyperlipidemia. HISTORY OF PRESENT ILLNESS: This is a gentleman who presents mostly with abdominal cramping as well as epigastric pain. He feels that he has been constipated and has not had a bowel movement in 2 days. He has lower abdominal cramping; however, he had discomfort in the epigastrium area. His troponin is positive. He was found to be in atrial fibrillation with rapid ventricular response. He was placed on a Cardizem drip as well as p.o. sotalol. His heart rate is now in the 70s. His epigastric discomfort has subsided. He still has the abdominal cramping and feels constipated. He has no previous cardiac history, has a history of hypertension and hyperlipidemia. PHYSICAL EXAMINATION: GENERAL APPEARANCE: Well-nourished, well-developed, appears stated age. Level of distress, comfortable. PSYCHIATRIC: Mental status, alert, normal affect. Orientation, oriented to time, place and person. EYES: Lids and conjunctiva, noninjected. No discharge, no pallor. ENT: Lips, teeth, gums, normal dentition. Oropharynx, no cyanosis, no pallor. NECK: Carotid arteries, bilateral normal upstroke, no bruits, no thrills. JUGULAR VEINS: No jugular venous pressure or distention. CERVICAL LYMPH NODES: Nontender, nonenlarged. THYROID: Not enlarged. Nontender. No nodules. LUNGS: Respiratory effort, unlabored. CHEST: Normal curvature. No thoracic deformity. No chest wall tenderness. Percussion, resonant. Auscultation, clear. No wheezes, no rales, no rhonchi. CARDIOVASCULAR: Precordial exam, nondisplaced. No heaves or pericardial thrills. Rate and rhythm, regular. Heart sounds, normal S1, normal S2. No S3, no gallop, no rub. Systolic murmur, not heard. Diastolic murmur, not heard. EXTREMITIES: No cyanosis, no edema. Peripheral pulses, full and equal in all extremities, except as noted. No bruits appreciated. ABDOMEN: Soft, nondistended. Normal aorta. No bruit. Nontender. No masses. Liver, nontender, no hepatomegaly. Spleen, nontender, no splenomegaly. MUSCULOSKELETAL: No joint tenderness. No joint swelling. No erythema. NEUROLOGICAL: Normal gait, normal strength, normal tone. SKIN: Warm and dry. OVERALL IMPRESSION: At this time, his blood pressure is not well controlled. We will add Norvasc and Imdur to his medical regimen, continuing the sotalol. It is concerning that he is now having nonsustained ventricular tachycardia as well as the atrial fibrillation. Clearly an unstable syndrome from a dysrhythmia standpoint in light of the elevated troponin. I think his epigastric pain was his anginal equivalent. We will need to look into his HISTORY AND PHYSICAL [id number] ALEXANDRE CARRANZA JR coronaries. We will start him on maximal medical therapy as well as give him medical therapy for the constipation, reevaluate in the a.m. to see if he has any further or continued symptomatology and any further dysrhythmias. TRANSINT:[id number] Voice Confirmation ID: [id number] DOCUMENT ID: [id number] PRIYA IMR MD at 1641 CC: [id number] DICTATION DATE: 11/11/18 1145 HYDRAULIC ELEVATOR CONSTRUCTOR: 11/11/18 1201 DIS IN 11/17/18 [facility] [address] [place] [address]
--- NOTE | 2018-11-18 16:42 | DS ---
PATIENT:ALEXANDRE SYKES JR :57 MEDICAL RECORD: [id number] DISCHARGE SUMMARY ADMISSION DATE: 11/11/18 DISCHARGE DATE: 11/17/18 DIAGNOSES: 1. Nonischemic cardiomyopathy. 2. Congestive heart failure, chronic systolic dysfunction. 3. Atrial fibrillation. 4. Hypertension. HISTORY AND HOSPITAL COURSE: Mr. Sykes presents with fluid overload state, found to be in atrial fibrillation, had elevated troponin; however, cardiac catheterization revealed no significant coronary artery disease. He has a nonischemic cardiomyopathy. He was treated medically with dobutamine and Bumex drip. He had marked diuresis. He was discharged home with the addition of lisinopril, sotalol, Eliquis, Bumex, and potassium to his medical regimen. Follow up with [facility] in 2-3 weeks. If he remains in atrial fibrillation, would consider DC cardioversion at that time. TRANSINT:[id number] Voice Confirmation ID: [id number] DOCUMENT ID: [id number] PRIYA MIR MD at 1642 CC: [id number] DICTATION DATE: 11/17/18 0851 SCALER PACKER: 11/17/18 2016 DIS IN 11/17/18 [facility] [address] [place] [address]
== END 2018-11-17 12:04 | disposition home or self-care (01) | DRG 281 ==
LOC: D.ER 20:09 → D.M2 21:29 → D.EDHOLD 21:29 → OBSVTIME 21:29 → D.M2 21:39
PROVIDERS: Family Medicine; ADMIT Internal Medicine Interventional Cardiology; ATTEND Internal Medicine Interventional Cardiology
PROC: B2151ZZ Fluoroscopy of Left Heart using Low Osmolar Contrast (ICD-10-PCS; 2018-11-14)
PROC: 4A023N7 Measurement of Cardiac Sampling and Pressure, Left Heart, Percutaneous Approach (ICD-10-PCS; 2018-11-14)
PROC: B2111ZZ Fluoroscopy of Multiple Coronary Arteries using Low Osmolar Contrast (ICD-10-PCS; principal; 2018-11-14 09:57)
DX: I21.4 Non-ST elevation (NSTEMI) myocardial infarction (principal); I47.2 Ventricular tachycardia; I42.9 Cardiomyopathy, unspecified; I48.91 Unspecified atrial fibrillation; K59.00 Constipation, unspecified; E78.5 Hyperlipidemia, unspecified; I11.0 Hypertensive heart disease with heart failure; I50.9 Heart failure, unspecified